=== PATIENT | male | born 1975 | race African-American/Black ===

== ENCOUNTER 2019-02-07 08:51 | Emergency (ER) | payer OTHER ==
--- NOTE | 2019-02-07 09:12 | PHYS DOC ---
Past History Past Medical History: No Pertinent History Past Surgical History: No Surgical History Smoking: Non-smoker Alcohol Use: Occasionally Drug Use: None Adult General Chief Complaint Chief Complaint: CHEST PAIN HPI HPI Patient is a 43-year-old male presents with chest discomfort started approximately 30 minutes prior to arrival. He reports it as a burning sensation. Started after he returned from taking an [employer] physical fitness test this morning. He had no chest discomfort during the run. Increased discomfort with deep breaths. He traveled to [place] from [place] approximately 2 weeks ago. He denies any lower extremity swelling. Denies any diaphoresis or nausea. No family history of early cardiac issues. Pain is moderate in intensity. No previous history of this discomfort.[] Review of Systems Review of Systems Constitutional: Denies fever or chills [] Eyes: Denies change in visual acuity, redness, or eye pain [] HENT: Denies nasal congestion or sore throat [] Respiratory: Denies cough or shortness of breath [] Cardiovascular: No additional information not addressed in HPI [] GI: Denies abdominal pain, nausea, vomiting, bloody stools or diarrhea [] : Denies dysuria or hematuria [] Musculoskeletal: Denies back pain or joint pain [] Integument: Denies rash or skin lesions [] Neurologic: Denies headache, focal weakness or sensory changes [] Endocrine: Denies polyuria or polydipsia [] All other systems were reviewed and found to be within normal limits, except as documented in this note. Current Medications Current Medications Current Medications Medications (Trade) Dose Ordered [facility] Start Time Stop Time Status Last Admin Dose Admin Aspirin (Children'S Aspirin) 324 mg 1X ONCE 02/07/19 09:15 02/07/19 09:16 UNV Multi-Ingredient Mouthwash/Gargle (Gi Cocktail) 20 ml 1X ONCE 02/07/19 09:15 02/07/19 09:16 UNV Physical Exam Physical Exam Constitutional: Well developed, well nourished, no acute distress, non-toxic appearance. [] HENT: Normocephalic, atraumatic, bilateral external ears normal, oropharynx mois t, no oral exudates, nose normal. [] Eyes: PERRLA, EOMI, conjunctiva normal, no discharge. [] Neck: Normal range of motion, no tenderness, supple, no stridor. [] Cardiovascular:Heart rate regular rhythm, no murmur [] Lungs & Thorax: Bilateral breath sounds clear to auscultation [] Abdomen: Bowel sounds normal, soft, no tenderness, no masses, no pulsatile masses. [] Skin: Warm, dry, no erythema, no rash. [] Back: No tenderness, no CVA tenderness. [] Extremities: No tenderness, no cyanosis, no clubbing, ROM intact, no edema. [] Neurologic: Alert and oriented X 3, normal motor function, normal sensory function, no focal deficits noted. [] Psychologic: Affect normal, judgement normal, mood normal. [] EKG EKG EKG shows a sinus rhythm at 59 bpm, normal axis, QTC of 396 ms, no ST elevations. No old EKG available for comparison. Interpreted by me at 0923[] Radiology/Procedures Radiology/Procedures PROCEDURE: CHEST PA & LATERAL Study: CHEST PA LATERAL Indication: Chest pain. Comparison: None. Findings: No pneumothorax, lobar infiltrate or pleural effusion. The cardiomediastinal silhouette is within normal limits. The partially evaluated upper abdomen and osseous structures are unremarkable. Impression: No acute radiographic abnormality of the chest.[] Course & Med Decision Making Course & Med Decision Making Pertinent Labs and Imaging studies reviewed. (See chart for details) ED course: Patient arrived, was placed in bed, and tolerated exam well. He was transported to and from radiology with any complications. He had pain relief with the GI cocktail. After the return of laboratory and imaging findings, these were discussed with the patient who voiced understanding. All questions were answered. He was discharged in improved condition. Medical decision making: Patient does not appear to be having in ST elevation DE, his heart score is 1 for the nonspecific repolarization abnormalities. No evidence of pneumonia, pneumothorax, nor esophageal rupture. Despite his travel risk factor, his d-dimer is negative so doubt that this is a pulmonary embolism. Given that the discomfort does not worsen with exertion and was worse with supine position believe this to be more of an esophageal issue, especially in light of him completing the [employer] physical fitness test without any chest discomfort. This will be treated accordingly.[] Dragon Disclaimer Dragon Disclaimer This electronic medical record was generated, in whole or in part, using a voice recognition dictation system. Departure Departure: Impression: Primary Impression: Chest pain Disposition: HOME, SELF-CARE Condition: IMPROVED Referrals: PCP,NO (PCP) Patient Instructions: Chest Pain (Nonspecific), Diet for Gastroesophageal Reflux Disease, Adult, Gastroesophageal Reflux Disease, Adult Additional Instructions: Follow-up with your regular doctor/sick call on Saturday. Return to the ER if worsening discomfort or any other concerns. Scripts Famotidine (PEPCID) 20 Mg Tablet 1 TAB PO BID for allergic reaction, #30 TAB 0 Refills Prov: RENETTA HOFFMAN DO 02/07/19 HEART Score for Chest Pain PTs The HEART Score for CP Pts HEART Score for Chest Pain: HEART Score for Chest Pain Response (Comments) Value History Slighlty/Non-Suspicious 0 ECG Nonspecific Repolarizatio 1 Age < 45 0 Risk Factors No Risk Factors 0 Troponin < Normal Limit 0 Total 1 Risk Factors: Risk Factors: DM, Current or recent (<one month) smoker, HTN, HLP, family history of CAD, obesity. Risk Scores: Score 0 - 3: 2.5% MACE over next 6 weeks - Discharge Home Score 4 - 6: 20.3% MACE over next 6 weeks - Admit for Clinical Observation Score 7 - 10: 72.7% MACE over next 6 weeks - Early Invasive Strategies Problem Qualifiers Primary Impression: Chest pain Chest pain type: unspecified Qualified Codes: R07.9 - Chest pain, unspecified RENETTA HOFFMAN DO Feb 07, 2019 09:12
[2019-02-07] MEDS ORDERED: LIDO:MAALOX 1:1 20 ML SINGLE DOSE. PO ONE (09:15)
[2019-02-07] MEDS ORDERED: ASPIRIN 81 MG TAB.CHEW PO ONE (09:15)
[2019-02-07 09:23] VITALS: BP 146/85
--- NOTE | 2019-02-07 09:25 | EKG ---
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
[2019-02-07] MEDS ORDERED: ASPIRIN ENTERIC COATED 81 MG TABLET.DR. PO ONE (09:27)
--- NOTE | 2019-02-07 09:32 | RAD ---
Study: CHEST PA LATERAL Indication: Chest pain. Comparison: None. Findings: No pneumothorax, lobar infiltrate or pleural effusion. The cardiomediastinal silhouette is within normal limits. The partially evaluated upper abdomen and osseous structures are unremarkable. Impression: No acute radiographic abnormality of the chest. Electronically signed by: LANNY PROCTOR MD (02/07/2019 9:29 AM) [facility]
[2019-02-07 10:02] LABS: BASO % 0 % (0-3); EOS % 0 % (0-3); HEMOGLOBIN 14.5 g/dL (13.0-17.5); LYMPH # 1.2 x10^3/uL (1.0-4.8); LYMPH % 29 % (24-48); MEAN CORPUSCULAR HEMOGLOBIN 31 pg (25-35); MEAN CORPUSCULAR HGB CONC 33 g/dL (31-37); MEAN CORPUSCULAR VOLUME 93 fL (79-100); MONO # 0.4 x10^3/uL (0.0-1.1); MONO % 8 % (0-9); NEUT # 2.6 x10^3uL (1.8-7.7); NEUT % 62 % (31-73); PLATELET COUNT 262 x10^3/uL (140-400); RED BLOOD COUNT 4.76 x10^6/uL (4.30-5.70); RED CELL DISTRIBUTION WIDTH 13.9 % (11.5-14.5); WHITE BLOOD COUNT 4.2 x10^3/uL (4.0-11.0)
[2019-02-07 10:25] LABS: ALBUMIN 3.7 g/dL (3.4-5.0); ALBUMIN/GLOBULIN RATIO 1.1 (1.0-1.7); CALCIUM 9.1 mg/dL (8.5-10.1); CREATININE 1.1 mg/dL (0.7-1.3); MAGNESIUM 2.2 mg/dL (1.8-2.4); POTASSIUM 4.3 mmol/L (3.5-5.1); TOTAL BILIRUBIN 0.4 mg/dL (0.2-1.0); TOTAL PROTEIN 7.1 g/dL (6.4-8.2)
[2019-02-07] MEDS ORDERED: FAMO-63 PO (10:40)
== END 2019-02-07 10:45 | disposition home or self-care (01) ==
LOC: ER 08:51
DX: R07.89 Other chest pain (principal)
CPT/HCPCS: 36415; 71046; 80053; 83690; 83735; 83880; 84484; 85025; 85379; 93005; 99285